=== PATIENT | female | born 1995 | race Two or more races ===

== ENCOUNTER 2021-03-11 19:48 | Observation (INO) | payer SELFPAY ==
[2021-03-11] MEDS ORDERED: ACETAMINOPHEN 500 MG TABLET PO PRN (20:30)
[2021-03-11 20:32] LABS: BILIRUBIN,URINE NEGATIVE (NEG); CLARITY,URINE CLOUDY; COLOR,URINE YELLOW; NITRITE,URINE POSITIVE (NEG); PH,URINE 6.5 (<5.0-8.0); PROTEIN,URINE 30 mg/dL (NEG-TRACE); UROBILINOGEN,URINE 0.2 mg/dL (0.2 mg/dL)
[2021-03-11 20:38] LABS: BARBITURATES NEG (NEG); BENZODIAZEPINES NEG (NEG); CANNABINOIDS NEG (NEG); COCAINE NEG (NEG); METHADONE NEG (NEG); OPIATES NEG (NEG); PHENCYCLIDINE NEG (NEG)
[2021-03-11 20:41] LABS: BACTERIA,URINE MANY /HPF (0-FEW); RBC,URINE RARE /HPF (0-2); WBC,URINE TNTC /HPF (0-4)
[2021-03-11 20:47] LABS: AMPHETAMINE/METHAMPHETAMINE NEG (NEG)
[2021-03-11] MEDS ORDERED: IV RINGERS,LACTATED 1000ML 1,000 ML IV SCH (21:00)
--- NOTE | 2021-03-11 22:20 | RAD ---
Exam: Ultrasound OB limited Indication: Placental placement, estimated weight, Technique: Real-time grayscale and color Doppler images of the pelvis were obtained by the department service control operator. Comparisons: None FINDINGS: Within the uterus there is a single live intrauterine gestation with heart rate measured at 131 bpm. Fetus is cephalic in position. measurements as follows: BPD: 8.2 cm corresponding to 32 weeks 6 days Head circumference: 29.5 cm corresponding to 32 weeks 4 days Abdominal circumference: 26.2 cm corresponding to 30 weeks 2 days Femur length: 5.9 cm corresponding to 30 weeks 5 days Estimated weight: 1652 g. Gestational age by ultrasound: 31 weeks 4 days. Sonographic estimated due date: 05/09/2021 Placenta is posterior wall of the uterus and appears normal. CHRISTIANO measured at 11.1 cm IMPRESSION: Single live intrauterine gestation with measurements as described above. Electronically signed by: Daria Dupont MD (03/11/2021 10:18 PM) LEFTY
== END 2021-03-11 22:57 | disposition home or self-care (01) ==
LOC: 3 SO LND 19:48
PROVIDERS: ADMIT Obstetrics & Gynecology; ATTEND Obstetrics & Gynecology
DX: O46.93 Antepartum hemorrhage, unspecified, third trimester (principal); O26.893 Other specified pregnancy related conditions, third trimester; Z3A.33 33 weeks gestation of pregnancy; Z79.899 Other long term (current) drug therapy
CPT/HCPCS: 59025; 76815; 80307; 81001; 87086; G0378; G0379

== ENCOUNTER 2021-04-12 17:41 | Inpatient (IN) | payer SELFPAY ==
[~2021-04-12] VITALS: Ht 152.4 cm; Wt 55.8 kg
--- NOTE | 2021-04-12 18:32 | PDOC1 ---
LABORATORY ANIMAL FACILITY SUPERVISOR H&P Date of Admission: Date of Admission: Apr 12, 2021 at 17:41 History of Present Illness: EDC: 05/04/21 LMP: 07/28/20 HPI: 25y @ 36.6 by L=21 presents to L&D with LOF. The pt was found to be grossly ruptured. Her exam was unchanged from her exam in the office on . The pt was having ctx on the toco but was not feeling them. PMH: Cold sores PSH: Denies Meds: PNV All: NKDA OBHx: G1 SH: no tob, no EtOH FH: noncontributory Allergies: Coded Allergies: No Known Drug Allergies (Unverified , 03/11/21) Physical Exam: PE: GENERAL: No apparent distress. Alert and oriented. HEENT: Head normocephalic, atraumatic. NECK: Supple LUNGS: Clear to auscultation. HEART: RRR, S1, S2 present, pulses intact ABDOMEN: Soft, positive bowel sounds. EXTREMITIES: No cyanosis or edema. NEUROLOGIC: Normal speech, normal tone PSYCHIATRIC: Normal affect, normal mood. SKIN: No ulceration. FHT: 150's +acel/no decls/mLTV [place]: 6-8 min SVE: 2/50/-3 Assessment & Plan: A/P 25y @ 36.6 by L=21 1.) SROM will augment with Pit 2.) Late entry to care - 18wks 3.) Flu vaccine given 12/02/20 4.) TDAP given 04/10/21 5.) Fetus cat I FHT 6.) GBS neg ODNNA MILLER MD Apr 12, 2021 18:32
[2021-04-12] MEDS ORDERED: 0.9 % SODIUM CHLORIDE 10 ML DISP.SYRIN. IV PRN (18:45)
[2021-04-12] MEDS ORDERED: TERBUTALINE 1 MG/ML VIAL. SQ PRN (18:45)
[2021-04-12] MEDS ORDERED: LIDOCAINE 1% PF 30 ML VIAL. INJ PRN (18:45)
[2021-04-12] MEDS ORDERED: OXYTOCIN 30 UNIT/500 ML PREMIX 500 ML IV PRN ×3 (18:45)
[2021-04-12] MEDS ORDERED: IBUPROFEN 400 MG TABLET. PO PRN (18:45)
[2021-04-12 19:11] LABS: BASO # 0.1 x10^3/uL (0.0-0.2); BASO % 0 % (0-3); EOS # 0.2 x10^3/uL (0.0-0.7); EOS % 1 % (0-3); HEMATOCRIT 33.9 % (36.0-47.0); HEMOGLOBIN 11.4 g/dL (12.0-15.5); LYMPH # 1.6 x10^3/uL (1.0-4.8); LYMPH % 10 % (24-48); MEAN CORPUSCULAR HEMOGLOBIN 29 pg (25-35); MEAN CORPUSCULAR HGB CONC 34 g/dL (31-37); MEAN CORPUSCULAR VOLUME 87 fL (79-100); MONO # 1.4 x10^3/uL (0.0-1.1); MONO % 8 % (0-9); NEUT # 13.3 x10^3/uL (1.8-7.7); NEUT % 81 % (31-73); PLATELET COUNT 235 x10^3/uL (140-400); RED BLOOD COUNT 3.88 x10^6/uL (3.50-5.40); RED CELL DISTRIBUTION WIDTH 13.8 % (11.5-14.5); WHITE BLOOD COUNT 16.5 x10^3/uL (4.0-11.0)
[2021-04-12] MEDS: IV RINGERS,LACTATED 1000ML 1,000 ML IV SCH ×2 (19:13→20:51)
[2021-04-12 20:26] LABS: % BANDS 7 % (0-9); % LYMPHS 10 % (24-48); % METAS 1 % (0-0); % MONOS 2 % (0-10); % SEGS 80 % (35-66); PLT ESTIMATE ADEQUATE (ADEQUATE)
[2021-04-12] MEDS: BUTORPHANOL 2 MG/ML VIAL. IV PRN (22:06)
[2021-04-13] MEDS ORDERED: BUTORPHANOL 2 MG/ML VIAL. IVP PRN (03:00)
[2021-04-13] MEDS ORDERED: ACETAMINOPHEN 325 MG TABLET. PO PRN ×2 (03:00→08:15)
[2021-04-13] MEDS ORDERED: 0.9 % SODIUM CHLORIDE 10 ML DISP.SYRIN. IV PRN ×2 (03:00→08:15)
[2021-04-13] MEDS ORDERED: ONDANSETRON PF 4 MG/2 ML VIAL. IVP PRN (03:00)
[2021-04-13] MEDS ORDERED: IV RINGERS,LACTATED 1000ML 1,000 ML IV SCH ×2 (03:00→05:30)
[2021-04-13] MEDS: BUTORPHANOL 2 MG/ML VIAL. IV PRN (03:11)
[2021-04-13] MEDS ORDERED: ROPIVacaine 0.2% PF 10 ML VIAL. ONE ×2 (04:37→05:00)
[2021-04-13] MEDS ORDERED: L&D EPIDURAL SYRINGE 50 ML ONE (04:37)
[2021-04-13] MEDS ORDERED: L&D EPIDURAL 50 ML SYRINGE. ONE (05:00)
[2021-04-13] MEDS ORDERED: ATROPINE 0.5 MG/5 ML DISP.SYRINGE. IV PRN (05:30)
[2021-04-13] MEDS ORDERED: fentaNYL PF VIAL 100 MCG/2 ML VIAL EPID PRN (05:30)
[2021-04-13] MEDS ORDERED: ePHEDrine PF IN SALINE 50 MG/10 ML SYRINGE. IV PRN (05:30)
[2021-04-13] MEDS ORDERED: L&D EPIDURAL SYRINGE 50 ML EPID PRN (05:30)
[2021-04-13] MEDS ORDERED: IV RINGERS,LACTATED 500ML 500 ML IV PRN (05:30)
[2021-04-13] MEDS ORDERED: ROPIVacaine 0.2% PF 10 ML VIAL. EPID PRN (05:30)
[2021-04-13] MEDS ORDERED: BUPIVACAINE MPF 0.25% 30 ML VIAL. EPID PRN (05:30)
[2021-04-13] MEDS ORDERED: NALOXONE 0.4 MG/ML VIAL. IV PRN (05:30)
[2021-04-13] MEDS ORDERED: PHENYLEPHRINE in 0.9% NACL PF 1 MG/10 ML SYRINGE. IV PRN (05:30)
--- NOTE | 2021-04-13 07:44 | PDOC ---
VAGINAL DELIVERY DATE DATE: 04/13/21 TIME: 07:44 TIME Patient delivered a viable male over intact perineum at 0712. Wt 4 lb 14 oz. Apgars 8/9. Placenta delivered spontaneously, intact with 3VC. No lacerations noted. Good hemostasis noted. 20 U of Pit given with IVF. EBL 200cc. WEIGHT Weight [ ] DONNA MILLER MD Apr 13, 2021 07:44
[2021-04-13] MEDS ORDERED: PHENYLEPH/MINERAL OIL/PETROLAT RECTAL OINTMENT TUBE. RC PRN (08:15)
[2021-04-13] MEDS ORDERED: oxyCODONE/APAP 5/325 1 TAB TABLET PO PRN (08:15)
[2021-04-13] MEDS ORDERED: SIMETHICONE 80 MG TAB.CHEW PO PRN (08:15)
[2021-04-13] MEDS ORDERED: MMR per PROTOCOL. MC PRN (08:15)
[2021-04-13] MEDS ORDERED: MAG HYDROX/ALUMINUM HYD/SIMETH 30 ML ORAL.SUSP PO PRN (08:15)
[2021-04-13] MEDS ORDERED: ZOLPIDEM 5 MG TABLET. PO PRN (08:15)
[2021-04-13] MEDS ORDERED: TDaP (Adacel) per PROTOCOL. MC PRN (08:15)
[2021-04-13] MEDS ORDERED: diphenhydrAMINE HCL 25 MG CAPSULE PO PRN (08:15)
[2021-04-13] MEDS ORDERED: HYDROCORTISONE 1% TOPICAL OINTMENT 30GM TUBE. TP PRN (08:15)
[2021-04-13] MEDS ORDERED: BENZOCAINE 20% TOPICAL AEROSOL SPRAY 57GM CAN. TP PRN (08:15)
[2021-04-13] MEDS ORDERED: MAGNESIUM HYDROXIDE 2,400 MG/30 ML ORAL.SUSP. PO PRN (08:15)
[2021-04-13] MEDS ORDERED: OXYTOCIN 30 UNIT/500 ML PREMIX 500 ML IV PRN (08:30)
[2021-04-13] MEDS: PRENATAL MULTIVITAMIN TABLET. PO SCH (09:00)
[2021-04-13 11:52] VITALS: BP 100/68
[2021-04-13 12:30] VITALS: BP 104/62
[2021-04-13 19:30] VITALS: BP 98/63
[2021-04-13] MEDS: DOCUSATE SODIUM 100 MG CAPSULE. PO PRN (19:38)
[2021-04-13] MEDS: IBUPROFEN 400 MG TABLET. PO PRN (19:39)
[2021-04-14 00:01] VITALS: BP 100/65
[2021-04-14 04:02] LABS: HEMATOCRIT 27.6 % (36.0-47.0); HEMOGLOBIN 9.1 g/dL (12.0-15.5); RED BLOOD COUNT 3.12 x10^6/uL (3.50-5.40); RED CELL DISTRIBUTION WIDTH 13.7 % (11.5-14.5); WHITE BLOOD COUNT 17.2 x10^3/uL (4.0-11.0)
[2021-04-14 05:24] VITALS: BP 89/57
[2021-04-14] MEDS: IBUPROFEN 400 MG TABLET. PO PRN (05:24)
[2021-04-14] MEDS: FERROUS SULFATE 325 MG TABLET. PO SCH ×2 (08:00→17:02)
[2021-04-14] MEDS: PRENATAL MULTIVITAMIN TABLET. PO SCH (09:00)
[2021-04-14 09:29] VITALS: BP 97/57
--- NOTE | 2021-04-14 10:26 | PDOC ---
CHEMISTRY LABORATORY TECHNICIAN PROGRESS NOTE Date of Service: DATE: 04/14/21 TIME: 10:25 Subjective: Pt with good pain control. Ricky PO. Voiding. Minimal lochia. Objective: Vital Signs: Vital Signs Date Time Temp Pulse Resp B/P (MAP) Pulse Ox O2 Delivery O2 Flow Rate FiO2 04/13/21 11:52 97.8 89 16 100/68 (79) Room Air 97.8 04/13/21 19:30 97 Vital Signs Date Time Temp Pulse Resp B/P (MAP) Pulse Ox O2 Delivery O2 Flow Rate FiO2 04/14/21 09:29 98.0 67 18 97/57 (70) 96 Room Air 98.0 Labs: Laboratory Tests Test 04/14/21 03:45 White Blood Count 17.2 x10^3/uL (4.0-11.0) H Red Blood Count 3.12 x10^6/uL (3.50-5.40) L Hemoglobin 9.1 g/dL (12.0-15.5) L Hematocrit 27.6 % (36.0-47.0) L Mean Corpuscular Volume 89 fL (79-100) Mean Corpuscular Hemoglobin 29 pg (25-35) Mean Corpuscular Hemoglobin Concent 33 g/dL (31-37) Red Cell Distribution Width 13.7 % (11.5-14.5) Platelet Count 193 x10^3/uL (140-400) Laboratory Tests 04/14/21 03:45 Laboratory Tests 04/14/21 03:45 Physical Exam: GENERAL: No apparent distress. Alert and oriented. HEENT: Head normocephalic, atraumatic. NECK: Supple LUNGS: Clear to auscultation. HEART: RRR, S1, S2 present, pulses intact ABDOMEN: Soft, positive bowel sounds. EXTREMITIES: No cyanosis or edema. NEUROLOGIC: Normal speech, normal tone PSYCHIATRIC: Normal affect, normal mood. SKIN: No ulceration. FFNT below umb No C/C/E Assessment & Plan: A/P 25y PPD #1 s/p 1.) PP doing well 2.) Flu vaccine given 12/02/20 3.) TDAP given 04/10/21 4.) Anemia Hgb 11.4 -> 9.1 5.) Cont PP care DONNA MILLER MD Apr 14, 2021 10:26
[2021-04-14 11:57] VITALS: BP 105/73
[2021-04-14 16:00] VITALS: BP 94/54
[2021-04-15 00:12] VITALS: BP 100/69
[2021-04-15 05:27] VITALS: BP 107/67
[2021-04-15 08:35] VITALS: BP 102/72
[2021-04-15] MEDS: IBUPROFEN 400 MG TABLET. PO PRN (08:41)
[2021-04-15] MEDS: FERROUS SULFATE 325 MG TABLET. PO SCH (08:42)
[2021-04-15] MEDS: DOCUSATE SODIUM 100 MG CAPSULE. PO PRN (08:42)
[2021-04-15] MEDS: PRENATAL MULTIVITAMIN TABLET. PO SCH (08:42)
[2021-04-15] MEDS ORDERED: IBUP-1060 PO (09:24)
[2021-04-15] MEDS ORDERED: FERR325T14 PO (09:24)
[2021-04-15] MEDS ORDERED: DOCU-109 PO (09:24)
--- NOTE | 2021-04-15 10:08 | PDOC ---
THERMAL CUTTER HAND PROGRESS NOTE Date of Service: DATE: 04/15/21 TIME: 10:07 Subjective: Pt with good pain control. Ricky PO. Voiding. Minimal lochia. Objective: Vital Signs: Vital Signs Date Time Temp Pulse Resp B/P (MAP) Pulse Ox O2 Delivery O2 Flow Rate FiO2 04/14/21 09:29 98.0 67 18 97/57 (70) 96 Room Air 98.0 Vital Signs Date Time Temp Pulse Resp B/P (MAP) Pulse Ox O2 Delivery O2 Flow Rate FiO2 04/15/21 08:35 98.4 79 16 102/72 (82) 99 Room Air 98.4 Physical Exam: GENERAL: No apparent distress. Alert and oriented. HEENT: Head normocephalic, atraumatic. NECK: Supple LUNGS: Clear to auscultation. HEART: RRR, S1, S2 present, pulses intact ABDOMEN: Soft, positive bowel sounds. EXTREMITIES: No cyanosis or edema. NEUROLOGIC: Normal speech, normal tone PSYCHIATRIC: Normal affect, normal mood. SKIN: No ulceration. FFNT below umb No C/C/E Assessment & Plan: A/P 25y PPD #2 s/p 1.) PP doing well 2.) Flu vaccine given 12/02/20 3.) TDAP given 04/10/21 4.) Anemia Hgb 11.4 -> 9.1, on Fe 5.) D/c home DONNA MILLER MD Apr 15, 2021 10:08
--- NOTE | 2021-04-15 10:32 | DS ---
DATE OF DISCHARGE: 04/15/2021 ADMISSION DIAGNOSES: 1. Intrauterine at 36 weeks and 6 days by LMP equal to 21-week ultrasound. 2. Spontaneous rupture of membranes. 3. Late entry to care. 4. Status post flu vaccine. 5. Status post Tdap. 6. GBS negative. DISCHARGE DIAGNOSES: 1. Intrauterine at 36 weeks and 6 days by LMP equal to 21-week ultrasound. 2. Spontaneous rupture of membranes. 3. Late entry to care. 4. Status post flu vaccine. 5. Status post Tdap. 6. GBS negative. PROCEDURE: Spontaneous vaginal delivery. BRIEF HOSPITAL COURSE: The patient is a 25-year-old 1, para 0, who presented to labor and delivery at 36 weeks and 6 days by LMP equal to 21-week ultrasound with leakage of fluid. The patient was found to be grossly ruptured. The patient's cervical exam had not changed significantly from her visit in the office 2 days prior. The patient was also reporting not feeling contractions. The patient was started on Pitocin for augmentation. The patient ultimately delivered the following morning by vaginal delivery. See delivery note for full detail. By day #2, the patient was meeting all discharge criteria and was subsequently discharged home. Of note, the patient's hemoglobin on admission was 11.4 and after delivery it was found to be 9.1. DISCHARGE INSTRUCTIONS: The patient was told not to lift anything greater than 20 pounds, have pelvic rest for 6 weeks, not to drive on narcotics. CALL IF: The patient was to call if she had fevers, chills, nausea, vomiting, abdominal pain or any additional questions or concerns. FOLLOWUP APPOINTMENT: The patient was to follow up on 06/03 at 9:20 a.m. for a appointment. DISCHARGE MEDICATIONS: The patient was given a prescription for Motrin 800 mg, 30 pills; ferrous sulfate 325 mg, 30 pills and Colace 100 mg, 30 pills. MIMI/EFFIE DR: Caroline TID: [id number]
[2021-04-15 11:36] VITALS: BP 110/73
--- NOTE | 2021-04-15 12:17 | NUR ---
Discharge Note: SUDHEER ADAMS SO LND Discharge instructions and discharge home medications reviewed with Patient and a copy given. All questions have been answered and understanding verbalized. The following instructions and handouts were given: [facility] Patient Discharge Instruction Sheet and Medication Schedule Discharge Instructions Post Patients Well Email Operations Manager - Depression and Baby Blues Care After Vaginal Delivery Patient discharged to home with self care via wc to private vehicle. [employer] phone used for discharge instructions ID#[id number]
== END 2021-04-15 12:16 | disposition home or self-care (01) | DRG 807 ==
LOC: OBSVTOIN 17:41 → 3 SO LND 17:41
PROVIDERS: ADMIT Obstetrics & Gynecology; ATTEND Obstetrics & Gynecology
PROC: 10E0XZZ Delivery of Products of Conception, External Approach (ICD-10-PCS; principal; 2021-04-13)
PROC: 3E033VJ Introduction of Other Hormone into Peripheral Vein, Percutaneous Approach (ICD-10-PCS; 2021-04-13)
DX: O90.81 Anemia of the puerperium (principal); Z37.0 Single live birth; Z3A.36 36 weeks gestation of pregnancy; D64.9 Anemia, unspecified; Z20.822 Contact with and (suspected) exposure to COVID-19
CPT/HCPCS: 36415; 85007; 85025; 85027; 86592; 86850; 86900; 86901; 87426; J0595; J2405; J2590; J2795; J3010; J7120; U0003; U0005; G0378